=== PATIENT | male | born 1995 | race Caucasian/White ===

== ENCOUNTER 2017-02-02 08:03 | Emergency (ER) | payer OTHER ==
[~2017-02-02] VITALS: Ht 185.4 cm; Wt 71.7 kg
[2017-02-02 10:58] LABS: BASOPHIL COUNT 0.1 K/uL (0-0.1); EOSINOPHIL (%) 2.9 % (0-5); EOSINOPHIL COUNT 0.1 K/uL (0-0.3); HEMATOCRIT 47.2 % (38.0-50.0); IMMATURE GRANULOCYTE (%) 0.2 % (0.0-0.7); INSTRUMENT ABS NEUTROPHIL CT 2.3 K/uL; LYMPHOCYTE COUNT 1.2 K/uL (1.0-2.8); MCH 29.8 PG (29.0-34.0); MCHC 33.3 G/DL (30.0-36.0); MCV 89.7 FL (86-99); MEAN PLAT.VOLUME 9.3 uM^3 (9.0-12.4); MONOCYTE COUNT 0.4 K/uL (0-0.8); NEUTROPHIL (%) 55.8 % (45-76); NEUTROPHIL COUNT 2.3 K/uL (1.8-6.4); PLATELET COUNT 235 K/uL (156-360); RBC DIS.WIDTH-CV 12.2 % (11.8-14.6); RED BLOOD COUNT 5.26 M/uL (4.00-5.50); WHITE BLOOD COUNT 4.1 K/uL (4.1-10.2)
[2017-02-02 11:18] LABS: CHLORIDE 105 mEq/L (99-109); POTASSIUM 4.3 mEq/L (3.7-5.4); SODIUM 139 mEq/L (136-147)
[2017-02-02 11:20] LABS: GLUCOSE 96 mg/dL (70-99)
[2017-02-02 11:21] LABS: ANION GAP 13 MEQ/L (2-14)
[2017-02-02 11:23] LABS: GFR ESTIMATE (CALCULATED) > 59 mL/min/
[2017-02-02 11:24] LABS: UREA NITROGEN (BUN) 10 mg/dL (9-23)
[2017-02-02] MEDS ORDERED: TYLENOL WITH C1 EACH PO (11:53)
[2017-02-02 12:12] VITALS: BP 110/64
== END 2017-02-02 12:22 | disposition home or self-care (01) ==
LOC: EME 08:03
PROVIDERS: Emergency Medicine
DX: R51 Headache (principal)
CPT/HCPCS: 70450; 80048; 85025; 99281; 99283